=== PATIENT | male | born 1935 | race Caucasian/White ===

== ENCOUNTER → 2017-02-09 | Outpatient (CLI) | payer OTHER ==
[~2017-02-09] MED LIST: ASA81BEC PO; CELEBREX 200 M200 MG PO; CITRUCEL CAPLET1 TA1 PO; COLACE 100 MG100 MG PO; COLESTIPOL HCL1 G1 PO; COUMADIN 5 MG TA5 M1 PO; CYCLOBENZAPRINE10 MG PO; DILTIAZEM ER180 M1 PO; MIRALAX255 GM PO; NORCO 5-325 TA1 EACH PO; PREDNISONE 10 M10 MG PO; PYRIDOSTIGMINE60 M1; SENNA LAXATIVE25 MG PO; TAMSULOSIN HCL0.4 MG PO; TOPROL XL100 MG PO
[2017-02-09 10:27] LABS: ALBUMIN 3.9 g/dL (3.4-5.0); CALCIUM 8.8 mg/dL (8.5-10.1); CREATININE 1.3 mg/dL (0.7-1.3); POTASSIUM 4.3 mmol/L (3.5-5.1); TOTAL BILIRUBIN 0.8 mg/dL (<0.1-1.0); TOTAL PROTEIN 7.1 g/dL (6.4-8.2)
[2017-02-09 11:28] LABS: ABSOLUTE NEUTROPHILS 1.8 thou/uL (1.4-8.2); BASOPHILS 0.8 % (0.0-2.0); EOSINOPHILS 3.4 % (0.0-3.0); HEMATOCRIT 40.9 % (42.0-52.0); HEMOGLOBIN 14.3 gm/dL (14.0-18.0); LYMPHOCYTES 27.6 % (24.0-44.0); MCH 34.4 pg (26.0-34.0); MCHC 34.9 g/dL (28.0-37.0); MCV 98.6 fL (80.0-100.0); PLATELET COUNT 134 thou/uL (150-400); POLYS 60.2 % (36.0-66.0); RBC 4.15 mil/uL (4.50-6.00); RDW 13.7 % (10.5-14.5)
[2017-02-09 11:29] LABS: MANUAL DIFF NO
== END ==
LOC: MRI 09:37
PROVIDERS: Psychiatry & Neurology Neurology
DX: R41.3 Other amnesia (principal)

== ENCOUNTER 2018-01-18 15:39 | Inpatient (IN) | payer OTHER ==
[~2018-01-18] VITALS: Ht 180.3 cm; Wt 101.6 kg
--- NOTE | ~2018-01-18 | 2DMMODE ---
[facility] [address] [place] [address] 2 D/M-MODE ECHOCARDIOGRAM Name: KALYN,INDER L Room #: 455-P [facility] IN [facility].#: [id number] Admission: 01/18/18 Attend Phys: Amor Norman MD Discharge: Date of : 31 Date of Service: 01/19/18 0908 Report #: [id number] THIS REPORT FOR: //name// APPROVED REPORT Study performed: 01/19/2018 08:14:32 EXAM: Comprehensive 2D, Doppler, and color-flow Echocardiogram Patient Location: Echo lab Room #: [facility] Status: routine BSA: 2.21 HR: 68 bpm BP: 139/74 mmHg Rhythm: Atrial Fibrillation Other Information Study Quality: Good Indications Sycnope, Afib. 2D Dimensions RVDd: 41.08 mm LVEF(%): 58.73 (>50%) IVSd: 9.90 (7-11mm) LVOT Diam: 24.01 (18-24mm) LVDd: 56.00 mm PWd: 10.40 (7-11mm) Ascending Ao: 39.81 (22-36mm) LVDs: 39.54 (25-40mm) Aortic Root: 42.48 mm Pisano's LVEF: 58.73 % Volumes Left Atrial Volume (Systole) Single Plane 4CH: 116.44 mL Single Plane 2CH: 113.35 mL LA ESV Index: 57.00 mL/m2 Aortic Valve AoV Peak Hugh.: 1.25 m/s AO Peak Gr.: 6.24 mmHg LVOT Max P.61 mmHg LVOT Max V: 0.81 m/s TEVIN Vmax: 2.92 cm2 Mitral Valve MV Decel. Time: 209.52 ms MV E Max Hugh.: 0.80 m/s [facility] [place] [address] 2 D/M-MODE ECHOCARDIOGRAM Name: INDER MCCAIN Malathi Room #: 455-P [facility] IN ..#: [id number] Admission: 01/18/18 Attend Phys: Amor Norman MD Discharge: Date of : 31 Date of Service: 01/19/18 0908 Report #: [id number] Pulmonary Valve PV Peak Hugh.: 0.99 m/s PV Peak Gr.: 3.90 mmHg Tricuspid Valve TR Peak Hugh.: 2.87 m/s RAP Estimate: 10.00 mmHg TR Peak Gr.: 33.08 mmHg PA Pressure: 43.00 mmHg Left Ventricle The left ventricle is normal size. There is normal LV segmental wall motion. There is normal left ventricular wall thickness. Left ventricular systolic function is normal. LVEF is 55%. This study is not technically sufficient to allow evaluation of the LV diastolic function due to atrial fibrillation. Right Ventricle The right ventricle is normal size. The right ventricular systolic function is normal. Atria Left atrium is severely dilated. Right atrium is moderately dilated. Aortic Valve Aortic valve leaflets are mildly sclerotic Mild to moderate aortic regurgitation. There is no aortic valvular stenosis. Mitral Valve Mitral valve leaflets are mildly thickened. Moderate mitral regurgitation. Tricuspid Valve The tricuspid valve is normal in structure. Moderate tricuspid regurgitation. Estimated PAP is 40-45mmHg. Pulmonic Valve The pulmonary valve is normal in structure. Mild pulmonic regurgitation. Great Vessels Aortic root is dilated at 4.2cm. Ascending aorta is dilated at 4.0cm. IVC is dilated and collapses >50% with inspiration. Pericardium [facility] [address] [place] [address] 2 D/M-MODE ECHOCARDIOGRAM Name: INDER MCCAIN Room #: 455-P [facility] IN [facility].#: [id number] Admission: 01/18/18 Attend Phys: Amor Norman MD Discharge: Date of : 31 Date of Service: 01/19/18 0908 Report #: [id number] There is no pericardial effusion. <Conclusion> Left ventricular systolic function is normal. There is normal LV segmental wall motion. LVEF is 55%. Both atria are severely dilated. Aortic valve leaflets are mildly sclerotic. Mild to moderate aortic regurgitation, no stenosis. Mitral valve leaflets are mildly thickened. Moderate mitral regurgitation. Moderate tricuspid regurgitation. Estimated pulmonary artery pressure of 40-45mmHg. Ascending aorta is mildly dilated at 4.0cm. There is no pericardial effusion. <ELECTRONICALLY SIGNED> By: Иван Coy MD, [facility] 01/19/18907 7 7 Иван Coy MD, FAC /INF
--- NOTE | ~2018-01-18 | EKG ---
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 : 1935 Requested By: Edgar Frost Order Number: [id number] MD: Иван Coy Measurements Intervals [place] Rate: 81 P: [place]: QRS: -10 QRSD: 107 T: 34 QT: 397 QTc: 461 Interpretive Statements Atrial fibrillation RSR' in V1 or V2, probably normal variant Baseline wander in lead(s) V5,V6 Compared to ECG 07/19/2017 17:42:48 Ventricular premature complex(es) no longer present Electronically Signed On 01-19-2018 7:44:23 CDT by Иван Coy [email or web address] <ELECTRONICALLY SIGNED> By: Иван Coy MD, [facility] 01/19/18 0744 1555 1555 Иван Cyo MD, [facility] /EPI
--- NOTE | ~2018-01-18 | HC ---
[facility] [place] [address] [address] [place] [address] CONSULTATION Name: INDER MCCAIN Room #: 455-P [facility] IN ..#: [id number] Admission: 01/18/18 Attend Phys: Amor Norman MD Discharge: Date of : 31 Report #: [id number] THIS REPORT FOR: //name// CC: Anita Norman DATE OF SERVICE: 01/19/2018 HISTORY OF PRESENT ILLNESS: This is an 82-year-old male patient who was evaluated by me for any neurological etiology for the patient's syncope. This patient was working outside. He said he will work for 15-20 minutes and then come back and take some breath and then go back. The family found him passed out. He was conscious and actually told his family to call 911, so his speech was intact, but he was not able to move much. He was not able to stand up. It does not look like he hit anything except the left elbow. He apparently is not able to stand up from the sitting position. REVIEW OF SYSTEMS: He carries a diagnosis of myasthenia gravis. He follows up with a neurologist. He used to have ophthalmological symptoms, but he takes some medication the name of which he does not know and that takes care of his symptoms. It looks like it may be Mestinon. He is on another parasympathomimetic medication, donepezil that is for his dementia. He has been diagnosed with Alzheimer type of dementia. It is not clear if he had any respiratory difficulty when it actually happened. It does not look like any tonic-clonic activity was noticed. He is ____, but he looks back to his baseline. A 14-point review of system was carried out. He had knee surgeries, cataract surgeries in the past. He has some history of neck and shoulder pain. He had an injury to the collar bone in the past. He has a history of prostatic surgery. He is not complaining of any new eye, ENT, cardiac, respiratory, GI, , constitutional, hematological, psychiatric, throat or allergic symptom associated with present symptomatology. He is having symptom in the left elbow where he fell. He is having some musculoskeletal symptoms especially in the left elbow area, but apparently he has a history of some neck and shoulder pain also. PAST MEDICAL HISTORY: The patient's past medical history is positive for dementia and myasthenia gravis by history. FAMILY HISTORY: Negative for any early age stroke. SOCIAL HISTORY: This patient lives with his and has 24-hour supervision with her. He also has a very supporting family. PHYSICAL EXAMINATION: Indicate that he is alert. He is responsive. He is not fully oriented. His memory and fund of knowledge is significantly diminished. His cranial nerve examination 2-12 looks mostly unremarkable. His strength, [facility] [address] [place] [address] CONSULTATION Name: INDER MCCAIN Room #: 455-P [facility] IN .R.#: [id number] Admission: 01/18/18 Attend Phys: Amor Norman MD Discharge: Date of : 31 Report #: [id number] sensation, reflexes and tone is symmetrical. Reflexes are diminished in the lower extremities. There is no cerebellar sign. I could not have a very good look at the patient's fundus. He is a very well developed individual who does not have any dysmorphic features of eyes, ears and face. He does not have any edema, cyanosis or jaundice. Cardiac examination appear unremarkable. No respiratory difficulty or rhonchi was noticed. Pulses are difficult to feel, but he has no evidence of vascular insufficiency. Blood pressure is 119/74, respirations 16, pulse is 61 and temperature 98.5. LABORATORY DATA: His white count is diminished at 3.9 and his platelet count is borderline at 134. He did have a CT scan of the head, which was unremarkable. IMPRESSION: Pretty difficult to form in this patient because there is no firsthand witness. Multiple things which may or may not be related need to be addressed in this patient. I first discussed with him that if he is having myasthenia gravis, he should not work in hot weather. He needs to talk to his neurologist about that. Secondly, he needs to be watched for bradycardia especially he is on donepezil as well as Mestinon as I understand. Thirdly, he needs to keep himself hydrated. This patient was not able to move when he fell, so I am not totally sure what happened at that time because the history is poor. I will suggest doing an MRI of the brain to make sure there is no asymptomatic stenosis, which became symptomatic either with bradycardia or some other thing which can decrease perfusion to the brain. He does have a history of neck pain and shoulder pain. That worries you somewhat because he was found passed out and it is not clear whether he had any trauma to the neck at that time or not and because of that, I think it will be desirable to clear his spine with that history. RECOMMENDATIONS: He would like to go home. We will see if these workup can be done pretty soon. If they can be done then from neurological perspective, he can be sent home later on. He needs some precautions and he should not work in the hot weather. He can continue 81 mg of aspirin. His lipid profile needs to be checked as an outpatient and then a decision need to be made if he needs to be on statin or not as an outpatient. He also needs systemic workup and we will defer that to you, but from neurological perspective if the workup is okay he can be dismissed later on today. Thank you very much for this referral and more than 50 minutes of time was spent taking care of this patient today and majority of that time was spent counseling the patient and coordinating his care. By: 1530 0746 Frank Morrison MD /nt
--- NOTE | ~2018-01-18 | EKG ---
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
--- NOTE | ~2018-01-18 | EEG ---
[facility] [address] [place] [address] ELECTROENCEPHALOGRAM Name: INDER MCCAIN Room #: 455-P [facility] IN M.R.#: [id number] Admission: 01/18/18 Attend Phys: Amor Norman MD Discharge: Date of : 31 Report #: [id number] THIS REPORT FOR: //name// CC: Anita Norman DATE OF SERVICE: 01/19/2018 This patient is being evaluated for syncope. EEG is being done to further evaluate that. EEG was done by placing the electrodes by standard 10-20 system of electrode placement. Both referential and sequential montages were used for recording. Background activity in this patient's EEG is about 9-10 Hz and 30 microvolt. It is a symmetrical activity. The patient went to sleep that is associated with bilateral slowing and sleep spindle and vertex sharp waves. Throughout the record, no active epileptiform activity was noticed. Photic stimulation was unremarkable. IMPRESSION: This patient's EEG is slow on both sides and is intermixed with theta range slowing on both sides. There is a nonspecific abnormality, which can occur with encephalopathy, effect of psychotropic medication, dementia, etc. Clinical correlation is recommended. Thank you very much for this referral. By: 0949 1152 Frank Morrison MD /nt
[~2018-01-18 15:39] MED LIST changes: +ARICEPT 5 MG TAB5 MG PO
[2018-01-18 15:50] VITALS: BP 112/70
[2018-01-18 16:09] LABS: ABSOLUTE NEUTROPHILS 3.5 thou/uL (1.4-8.2); BASOPHILS 0.6 % (0.0-2.0); EOSINOPHILS 4.7 % (0.0-3.0); HEMATOCRIT 38.1 % (42.0-52.0); HEMOGLOBIN 13.4 gm/dL (14.0-18.0); LYMPHOCYTES 12.4 % (24.0-44.0); MCH 34.1 pg (26.0-34.0); MCHC 35.2 g/dL (28.0-37.0); MCV 96.8 fL (80.0-100.0); MONOCYTES 6.1 % (1.0-8.0); PLATELET COUNT 132 thou/uL (150-400); POLYS 76.2 % (36.0-66.0); RBC 3.93 mil/uL (4.50-6.00); RDW 13.6 % (10.5-14.5); WBC 4.6 thou/uL (4.0-11.0)
[2018-01-18 16:18] LABS: ANION GAP 8 mmol/L (7-16); BUN 19 mg/dL (7-18); CALCIUM 8.5 mg/dL (8.5-10.1); CHLORIDE 106 mmol/L (98-107); CO2 26 mmol/L (21-32); CREATININE 1.3 mg/dL (0.7-1.3); GLUCOSE 109 mg/dL (74-106); POTASSIUM 3.8 mmol/L (3.5-5.1); SODIUM 140 mmol/L (136-145)
[2018-01-18 16:26] LABS: ALBUMIN 3.4 g/dL (3.4-5.0); SGOT 14 U/L (15-37); SGPT 14 U/L (30-65); TOTAL PROTEIN 6.5 g/dL (6.4-8.2); TROPONIN-I < 0.04 ng/mL (<0.06)
[2018-01-18 17:29] VITALS: BP 112/70
[2018-01-18 18:08] VITALS: BP 112/70
[2018-01-18 18:49] VITALS: BP 144/88
[2018-01-18 19:41] VITALS: BP 137/81
[2018-01-19 03:51] VITALS: BP 139/74
[2018-01-19 05:58] LABS: HEMATOCRIT 37.6 % (42.0-52.0); HEMOGLOBIN 12.9 gm/dL (14.0-18.0); MCH 33.4 pg (26.0-34.0); MCHC 34.3 g/dL (28.0-37.0); MCV 97.4 fL (80.0-100.0); RBC 3.86 mil/uL (4.50-6.00); RDW 13.5 % (10.5-14.5); WBC 3.9 thou/uL (4.0-11.0)
[2018-01-19 06:21] LABS: ANION GAP 8 mmol/L (7-16); BUN 19 mg/dL (7-18); CALCIUM 8.5 mg/dL (8.5-10.1); CHLORIDE 107 mmol/L (98-107); CO2 24 mmol/L (21-32); CREATININE 1.1 mg/dL (0.7-1.3); GLUCOSE 100 mg/dL (74-106); POTASSIUM 4.2 mmol/L (3.5-5.1); SODIUM 139 mmol/L (136-145); TROPONIN-I < 0.04 ng/mL (<0.06)
[2018-01-19 08:00] VITALS: BP 119/74
[2018-01-19 15:08] LABS: TSH 2.203 uIU/mL (0.358-3.740)
[2018-01-19 16:00] VITALS: BP 155/78
[2018-01-19 16:31] LABS: URINE BILIRUBIN NEGATIVE (Negative); URINE BLOOD NEGATIVE (Negative); URINE CLARITY CLEAR; URINE COLOR YELLOW; URINE GLUCOSE-RANDOM* NEGATIVE (Negative); URINE KETONES NEGATIVE (Negative); URINE PROTEIN (DIPSTICK) NEGATIVE (Negative); URINE SPECIFIC GRAVITY 1.025 (1.005-1.035)
[2018-01-19 16:33] LABS: URINE LEUKOCYTES-REFLEX TRACE (Negative); URINE NITRITE-REFLEX POSITIVE (Negative)
[2018-01-19 16:42] LABS: CASTS None Seen /LPF (None Seen); SQUAMOUS 0-3 Few /LPF (0-3)
[2018-01-19 16:43] LABS: AMORPHOUS URATES Moderate /LPF (None Seen); URINE RBC None Seen /HPF (0-2)
[2018-01-19 16:44] LABS: MUCUS 0-3 Light strn/LPF (None Seen)
[2018-01-19 19:19] VITALS: BP 138/76
[2018-01-20 08:25] VITALS: BP 143/66
[2018-01-20 15:13] VITALS: BP 143/66
== END 2018-01-20 16:33 | disposition home or self-care (01) | DRG 312 ==
LOC: ER 15:39 → 4W 17:21 → EROBS 17:21 → 4W 18:00
PROVIDERS: Emergency Medicine; Hospitalist; Nurse Practitioner; Psychiatry & Neurology Neuromuscular Medicine
DX: R55 Syncope and collapse (principal); M19.90 Unspecified osteoarthritis, unspecified site; Z96.653 Presence of artificial knee joint, bilateral; D69.6 Thrombocytopenia, unspecified; I11.9 Hypertensive heart disease without heart failure; G70.00 Myasthenia gravis without (acute) exacerbation; R19.7 Diarrhea, unspecified; R53.81 Other malaise; W01.0XXA Fall on same level from slipping, tripping and stumbling without subsequent striking against object, initial encounter; I48.91 Unspecified atrial fibrillation; R26.9 Unspecified abnormalities of gait and mobility; Z79.1 Long term (current) use of non-steroidal anti-inflammatories (NSAID); Z79.899 Other long term (current) drug therapy; Z79.82 Long term (current) use of aspirin; Z88.5 Allergy status to narcotic agent; Z88.8 Allergy status to other drugs, medicaments and biological substances; Y93.89 Activity, other specified; Y92.89 Other specified places as the place of occurrence of the external cause; Y99.8 Other external cause status; Z82.0 Family history of epilepsy and other diseases of the nervous system
CPT/HCPCS: 10045